=== PATIENT | female | born 1975 | race African-American/Black ===

== ENCOUNTER 2017-08-06 07:53 | Outpatient (CLI) | payer OTHER ==
--- NOTE | 2017-08-06 16:06 | Mammography Report ---
BILATERAL DIGITAL SCREENING MAMMOGRAM WITH CAD:08/06/17 08:00:00 CLINICAL: Baseline screening. FINDINGS: The breasts are heterogeneously dense, which may obscure small masses. An oval partially circumscribed right inner mass or cyst measures approximately 3.3 x 2.5 x 2.6 cm and requires additional imaging. Bilateral retroareolar punctate calcifications with benign morphology. No suspicious calcifications. IMPRESSION: A right inner mass or cyst requiring further workup. BI-RADS CATEGORY: 0 -- Needs Additional Imaging RECOMMENDATION: Recall for a targeted right breast ultrasound and additional right mammographic views if needed. ACR BI-RADS MAMMOGRAPHIC CODES: 0 = Needs additional imaging evaluation; 1 = Negative; 2 = Benign; 3 = Probably benign; 4 = Suspicious; 5 = Malignant; 6 = Known biopsy-proven malignancy COMMENT: 1. Dense breast tissue, i.e., adenosis, fibrocystic changes, etc., may obscure an underlying neoplasm. 2. Approximately 10% of cancers are not detected with mammography. 3. A negative mammography report should not delay biopsy if a clinically suspicious mass is present.
== END 2017-08-06 07:54 | disposition home or self-care (01) ==
LOC: MAMMO 07:53
PROVIDERS: ATTEND Obstetrics & Gynecology
DX: Z12.31 Encounter for screening mammogram for malignant neoplasm of breast (principal)
CPT/HCPCS: 77067; G0202

== ENCOUNTER 2017-08-31 08:49 | Outpatient (CLI) | payer OTHER ==
--- NOTE | 2017-08-31 09:54 | Ultrasound Report ---
Spot compression magnification circumscribed obscured density lower inner right breast followed by sonographic examination: Findings: There is persistence of confluence of glandular tissue noted at the lower inner right breast with a faint margin. There is no microcalcification noted. Sonographic examination reveals a simple cyst measuring 3.1 cm corresponding to the density seen at 3 to 5:00 position. Impression: Benign findings. Annual followup with mammogram recommended. BI-RADS CATEGORY: 2 = Benign ACR BI-RADS MAMMOGRAPHIC CODES: 0 = Needs additional imaging evaluation; 1 = Negative; 2 = Benign; 3 = Probably benign; 4 = Suspicious; 5 = Malignant; 6 = Known biopsy-proven malignancy COMMENT: 1. Dense breast tissue, i.e., adenosis, fibrocystic changes, etc., may obscure an underlying neoplasm. 2. Approximately 10% of cancers are not detected with mammography. 3. A negative mammography report should not delay biopsy if a clinically suspicious mass is present. COMMENT: Patient follow-up letters are generated in [employer].
== END 2017-08-31 08:50 | disposition home or self-care (01) ==
LOC: MAMMO 08:49
PROVIDERS: ATTEND Obstetrics & Gynecology
DX: N60.01 Solitary cyst of right breast (principal)
CPT/HCPCS: 76642; G0206

== ENCOUNTER 2018-08-24 08:56 | Outpatient (CLI) | payer OTHER ==
--- NOTE | 2018-08-24 10:46 | Mammography Report ---
BILATERAL DIGITAL SCREENING MAMMOGRAM with CAD : 08/24/18 08:56:00 CLINICAL: Routine screening. COMPARISON:08/31/17 FINDINGS: The breasts are heterogeneously dense, which may obscure small masses.Scattered bilateral calcifications with benign morphology. A previously confirmed cyst of the lower inner right breast is larger compared to the last exam. No mass, architectural distortion or suspicious calcifications. IMPRESSION: No mammographic evidence of malignancy. BI-RADS CATEGORY: 2 -- Benign RECOMMENDATION: Routine mammographic screening in one year. COMMENT: Patient follow-up letters are generated by our [employer] application.
== END 2018-08-24 08:57 | disposition home or self-care (01) ==
LOC: MAMMO 08:56
PROVIDERS: ATTEND Obstetrics & Gynecology
DX: Z12.31 Encounter for screening mammogram for malignant neoplasm of breast (principal)
CPT/HCPCS: 77067

== ENCOUNTER 2019-02-08 08:32 | Outpatient (CLI) | payer OTHER ==
--- NOTE | 2019-02-08 13:33 | Ultrasound Report ---
RIGHT DIGITAL DIAGNOSTIC MAMMOGRAM with CAD and RIGHT BREAST ULTRASOUND: 02/08/19 CLINICAL: Right breast pain. COMPARISON:08/24/18 FINDINGS: The breast is heterogeneously dense, which may obscure small masses.The previously confirmed right cyst at 6 o'clock is not significantly changed in size. Ultrasound of the right breast (including all four quadrants and the retroareolar area) was performed. The previously confirmed retroareolar cyst measures 2.6 x 2.1 x 2.8 cm compared to a maximum diameter of 3.1 cm on 08/31/17. No solid mass or shadowing. IMPRESSION: No mammographic evidence of malignancy.A 3 cm benign right retroareolar cyst which is not significantly changed compared to previous exams. Since the patient says that it is intermittently painful, consider ultrasound guided aspiration for symptomatic relief. BI-RADS CATEGORY: 2 -- Benign RECOMMENDATION: Routine mammographic screening. COMMENT: Patient follow-up letters are generated by our [employer] application.
== END 2019-02-08 08:33 | disposition home or self-care (01) ==
LOC: MAMMO 08:32
PROVIDERS: ATTEND Obstetrics & Gynecology
DX: N63.14 Unspecified lump in the right breast, lower inner quadrant (principal); N64.4 Mastodynia

== ENCOUNTER 2019-08-30 08:19 | Outpatient (CLI) | payer OTHER ==
--- NOTE | 2019-09-01 08:43 | Mammography Report ---
DIGITAL SCREENING MAMMOGRAM WITH TOMOSYNTHESIS WITH CAD, 08/30/2019 INDICATION: Routine Screening Mammography. SCREENING WITH IKE TECHNIQUE: Digital bilateral 2D and 3D mammography with tomosynthesis was obtained in the craniocau wilfrido and mediolateral oblique projections. Computer-Aided Detection (CAD) analysis was used for inter pretation of this study. COMPARISON: 08/24/2018 and 02/08/2019 right mammogram and right breast ultrasound FINDINGS: Breast Density: The breasts are heterogeneously dense, which may obscure small masses. There is no evidence of dominant mass, suspicious calcifications or architectural distortion in the r ight breast. The previously described right cyst has resolved. However, a 2 cm oval circumscribed lef t mass at 1:00 approximately 5 cm from the nipple is new and requires additional imaging. Scattered b ilateral benign calcifications. IMPRESSION: A 2 cm oval left mass or cyst at 1:00 left breast. Recommend recall for targeted left oumou ast ultrasound. Negative right breast. Follow up recommendation: Ultrasound Category 0: Incomplete. Needs additional imaging evaluation and/or prior mammograms for comparison. A "normal" or negative report should not discourage follow up or biopsy of a clinically significant f inding. A written summary of these findings will be mailed to the patient. The patient will be entered into a mammography reporting system which will generate a reminder letter for the patient's next appointmen t at the appropriate interval. [employer] recommends yearly mammograms starting at age 40 and continuing as l getachew as a woman is in good health. Breast MRI is recommended for women with an approximate 20-25% or greater lifetime risk of breast cancer, including women with a strong family history of breast or ova kendra cancer or who have been treated for Hodgkin's disease. Signer Name: Jovanny Rodrigues MD Signed: 09/01/2019 8:39 AM Workstation Name: [id number]
== END 2019-08-30 08:20 | disposition home or self-care (01) ==
LOC: SPVWC 08:19
PROVIDERS: ATTEND Obstetrics & Gynecology
DX: Z12.31 Encounter for screening mammogram for malignant neoplasm of breast (principal); N63.21 Unspecified lump in the left breast, upper outer quadrant
CPT/HCPCS: 77063; 77067

== ENCOUNTER 2019-10-11 08:14 | Outpatient (CLI) | payer OTHER ==
--- NOTE | 2019-10-11 08:41 | Ultrasound Report ---
LEFT BREAST ULTRASOUND HISTORY: Abnormal mammogram. COMPARISON: 08/30/2019 screening mammogram FINDINGS: Sonographic evaluation focused upon the upper outer quadrant location of the left breast de monstrates a benign oval relatively anechoic cyst at 1:30 o'clock 2 cm from the nipple. It measures 1 .9 x 1.1 x 2.1 cm and correlates with the mammographic density. IMPRESSION: A benign 2.1 cm left breast cyst at 1:30 o'clock 2 cm from the nipple. Recommend routine mammographic screening in one year. BIRADS 2: Benign Signer Name: Jovanny Rodrigues MD Signed: 10/11/2019 8:36 AM Workstation Name: [id number]
== END 2019-10-11 08:15 | disposition home or self-care (01) ==
LOC: SPVWC 08:14
PROVIDERS: ATTEND Obstetrics & Gynecology
DX: N60.02 Solitary cyst of left breast (principal)